=== PATIENT | male | born 1960 | race Caucasian/White ===

== ENCOUNTER 2018-10-20 11:47 | Day surgery (SDC) | payer OTHER ==
[~2018-10-20] VITALS: Ht 177.8 cm; Wt 149.2 kg
[~2018-10-20 11:47] MED LIST: ALBU90OI61; Amoxicillin500 M1 PO; LOSARTAN POTAS100 MG
== END 2018-10-20 13:45 | disposition home or self-care (01) ==
LOC: ORSCSDS 11:47
PROVIDERS: Surgery
PROC: 0DBC8ZX Excision of Ileocecal Valve, Via Natural or Artificial Opening Endoscopic, Diagnostic (ICD-10-PCS; principal; 2018-10-20 13:00)
DX: Z12.11 Encounter for screening for malignant neoplasm of colon (principal); D12.0 Benign neoplasm of cecum; K57.30 Diverticulosis of large intestine without perforation or abscess without bleeding; Z80.0 Family history of malignant neoplasm of digestive organs; G47.33 Obstructive sleep apnea (adult) (pediatric); E78.5 Hyperlipidemia, unspecified; E66.01 Morbid (severe) obesity due to excess calories; Z68.42 Body mass index [BMI] 45.0-49.9, adult; Z79.899 Other long term (current) drug therapy
CPT/HCPCS: 88305; J0461; J2405; J2704; J7120

== ENCOUNTER 2023-11-14 09:56 | Day surgery (SDC) | payer OTHER ==
[2023-11-14] VITALS (17 sets, daily range): BP systolic 100–146; BP diastolic 60–96
[~2023-11-14] VITALS: Ht 177.8 cm; Wt 103.3 kg
[~2023-11-14 09:56] MED LIST changes: +Lactated Ringer's 1,000 ML IV SCH
[2023-11-14] MEDS ORDERED: propofoL 20 ML IV ONE ×2 (10:42)
[2023-11-14] MEDS ORDERED: propofoL 0 ML IV ONE (11:50)
--- NOTE | 2023-11-14 11:53 | NUR ---
11/14/23 1153 Lindsey Ring HISTORY, CHART, MEDICATIONS AND ALLERGIES REVIEWED BEFORE START OF PROCEDURE. PATIENT CONFIRMS NPO STATUS AND AGREES WITH SCHEDULED PROCEDURE. 3-LEAD EKG REVIEWED WITH PHYSICIAN PRIOR TO START OF PROCEDURE. MONITOR INTACT WITH CONTINUOUS PULSE OXIMETRY,CAPNOGRAPHY, 3-LEAD EKG, INTERMITTENT BP. SUPPLEMENTAL O2 TO BE TITRATED THROUGHOUT PROCEDURE TO MAINTAIN O2 SATURATION ABOVE 90%. PATIENT DETERMINED TO BE ASA APPROPRIATE FOR PROPOFOL SEDATION PRIOR TO START OF PROCEDURE BY DR. SANTIZO.
--- NOTE | 2023-11-14 12:59 | NUR ---
1226 RECEIVED PT FROM ENDO ROOM ONE S/P COLONOSCOPY, AWAKE VSS, [place]AN[place] JUICE, DR SANTIZO TALKS WITH PATIENT. DC INSTRUCTS GIVEN TO PT AND THIS RN FORGOT TO MAKE COPY FOR CHART. PT HAS ORIGIONAL. 1253 DC HOME
== END 2023-11-14 12:53 | disposition home or self-care (01) ==
LOC: ORSCMMR 09:56 → ORD 11:30 → ORSCMMR 12:53 → ORSCSDS 01-13 15:00
PROVIDERS: Surgery
PROC: 0DJD8ZZ Inspection of Lower Intestinal Tract, Via Natural or Artificial Opening Endoscopic (ICD-10-PCS; principal; 2023-11-14 11:30)
DX: Z12.11 Encounter for screening for malignant neoplasm of colon (principal); K57.30 Diverticulosis of large intestine without perforation or abscess without bleeding; Z86.010 Personal history of colon polyps; Z80.0 Family history of malignant neoplasm of digestive organs; G47.30 Sleep apnea, unspecified; F41.9 Anxiety disorder, unspecified; G47.33 Obstructive sleep apnea (adult) (pediatric); Z98.84 Bariatric surgery status; Z79.899 Other long term (current) drug therapy
CPT/HCPCS: J2704; J7120